=== PATIENT | male | born 1995 | race Caucasian/White ===

== ENCOUNTER 2020-06-24 19:53 | Emergency (ER) | payer OTHER ==
--- NOTE | 2020-06-24 19:56 | EDM.PDOC ---
ED HPI GENERAL MEDICAL PROBLEM - General Stated Complaint: CHEST PAIN Time Seen by Provider: 06/24/20 19:53 Source of Information: Reports: Patient History Limitations: Reports: No Limitations - History of Present Illness INITIAL COMMENTS - FREE TEXT/NARRATIVE: 24-year-old male past medical history supraventricular tachycardia, atrial fibrillation requiring cardioversion presents for chest pain. Patient notes that over the last month he has had on and off episodes of chest pain that feels worse when breathing out and is more of a discomfort than a pain. Tonight pain started and lasted for roughly 5 hours, still feeling it a bit. No associated shortness of breath. No associated lower extremity swelling or edema. He does not have a settlement processor currently. His noted that his heartbeat felt irregular prompting him to seek medical attention. chest Pain Score (Numeric/FACES): 5 - Related Data Allergies Allergy/AdvReac Type Severity Reaction Status Date / Time cefazolin [From Ancef] Allergy Rash Verified 06/24/20 20:05 doxycycline Allergy Rash Verified 06/24/20 20:05 Sulfa (Sulfonamide Allergy Rash Verified 06/24/20 20:04 Antibiotics) vancomycin Allergy Anaphylactic Verified 06/24/20 20:04 Shock Home Meds: Home Meds Colchicine 0.6 mg PO DAILY 02/17/18 [History] Dapsone 100 mg PO DAILY #30 tablet 02/17/18 [Rx] Gabapentin [Neurontin] 600 mg PO TID 02/17/18 [History] Buprenorphine/Naloxone [Buprenorphine-Naloxone 8 MG-2 MG] 1 tab PO TID 06/24/20 [History] DULoxetine [Cymbalta] 30 mg PO DAILY 06/24/20 [History] Metoprolol Succinate [Toprol Xl] 25 mg PO DAILY #30 tab.er.24h 06/24/20 [Rx] Prazosin HCl [Prazosin] 2 mg PO BEDTIME 06/24/20 [History] QUEtiapine Fumarate [Seroquel] 50 mg PO BEDTIME 06/24/20 [History] Past Medical History HEENT History: Reports: None Cardiovascular History: Reports: None Respiratory History: Reports: None Gastrointestinal History: Reports: None Genitourinary History: Reports: None Neurological History: Reports: None Psychiatric History: Reports: PTSD Endocrine/Metabolic History: Reports: None Hematologic History: Reports: None Immunologic History: Reports: None Oncologic (Cancer) History: Reports: None Dermatologic History: Reports: None - Infectious Disease History Infectious Disease History: Reports: None - Past Surgical History Head Surgeries/Procedures: Reports: None Musculoskeletal Surgical History: Reports: Shoulder Surgery Other Musculoskeletal Surgeries/Procedures:: ankle surgery, shrapnell removal from left leg Social & Family History - Family History Family Medical History: No Pertinent Family History - Caffeine Use Caffeine Use: Reports: Energy Drinks ED ROS GENERAL - Review of Systems Review Of Systems: Comprehensive ROS is negative, except as noted in HPI. ED EXAM, GENERAL - Physical Exam Exam: See Below Exam Limited By: No Limitations General Appearance: Alert, WD/WN, No Apparent Distress Throat/Mouth: Normal Voice, No Airway Compromise Head: Atraumatic, Normocephalic Neck: Normal Inspection Respiratory/Chest: No Respiratory Distress, Lungs Clear, Normal Breath Sounds, No Accessory Muscle Use Cardiovascular: Normal Peripheral Pulses, Regular Rate, Rhythm, No Edema Extremities: Normal Inspection Neurological: Alert Psychiatric: Normal Affect, Normal Mood Skin Exam: Warm, Dry, Intact, Normal Color #1 Interpretation EKG Date: 06/24/20 Time: 20:02 Rhythm: NSR Rate (Beats/Min): 82 [place]: Normal P-Wave: Present QRS: Normal ST-T: Normal QT: Normal ND/PQ Interval: 155 EKG Interpretation Comments: No acute ischemic changes, string of ventricular trigeminy Course - Vital Signs Last Recorded V/S: Last Vital Signs Temp 97.5 F 06/24/20 19:59 Pulse 83 06/24/20 20:21 Resp 16 06/24/20 19:59 BP 129/66 06/24/20 20:21 Pulse Ox 96 06/24/20 19:59 - Orders/Labs/Meds Orders: Active Orders 24 hr Category Date Time Status Cardiac Monitoring [RC] . DIRECTED Care 06/24/20 20:11 Active EKG Documentation Completion [RC] STAT Care 06/24/20 20:11 Active Pulse Oximetry [RC] ASDIRECTED Care 06/24/20 20:11 Active Chest 1V Frontal [CR] Stat Exams 06/24/20 20:12 Taken Sodium Chloride 0.9% [Saline Flush] Med 06/24/20 20:11 Active 10 ml FLUSH ASDIRECTED PRN Sodium Chloride 0.9% [Saline Flush] Med 06/24/20 20:11 Active 2.5 ml FLUSH ASDIRECTED PRN Saline Lock Insert [OM.PC] Stat Oth 06/24/20 20:11 Ordered Medication Orders Sodium Chloride (Sodium Chloride 0.9% 10 Ml Syringe) 10 ml FLUSH ASDIRECTED PRN PRN Reason: Keep Vein Open Last Admin: 06/24/20 20:18 Dose: 10 ml Documented by: KAMLESH Sodium Chloride (Sodium Chloride 0.9% 2.5 Ml Syringe) 2.5 ml FLUSH ASDIRECTED PRN PRN Reason: Keep Vein Open Last Admin: 06/24/20 20:18 Dose: 2.5 ml Documented by: KAMLESH Labs: Laboratory Tests 06/24/20 06/24/20 06/24/20 Range/Units 20:02 20:02 20:02 WBC 6.77 (4.0-11.0) K/uL RBC 4.74 (4.50-5.90) M/uL Hgb 13.7 (13.0-17.0) g/dL Hct 39.9 (38.0-50.0) % MCV 84.2 (80.0-98.0) fL MCH 28.9 (27.0-32.0) pg MCHC 34.3 (31.0-37.0) g/dL RDW Std Deviation 38.9 (28.0-62.0) fl RDW Coeff of Ashwin 13 (11.0-15.0) % Plt Count 200 (150-400) K/uL MPV 9.90 (7.40-12.00) fL Neut % (Auto) 62.9 (48.0-80.0) % Lymph % (Auto) 26.4 (16.0-40.0) % [place] % (Auto) 9.2 (0.0-15.0) % Eos % (Auto) 1.2 (0.0-7.0) % Baso % (Auto) 0.3 (0.0-1.5) % Neut # (Auto) 4.3 (1.4-5.7) K/uL Lymph # (Auto) 1.8 (0.6-2.4) K/uL [place] # (Auto) 0.6 (0.0-0.8) K/uL Eos # (Auto) 0.1 (0.0-0.7) K/uL Baso # (Auto) 0.0 (0.0-0.1) K/uL Nucleated RBC % 0.0 /100WBC Nucleated RBCs # 0 K/uL INR 1.11 APTT 23.2 (18.6-31.3) SEC D-Dimer, Quantitative (0.0-0.50) mg/L FEU Sodium 139 (136-148) mmol/L Potassium 3.2 L (3.5-5.1) mmol/L Chloride 101 (98-107) mmol/L Carbon Dioxide 29.0 (21.0-32.0) mmol/L BUN 19 H (7.0-18.0) mg/dL Creatinine 1.0 (0.8-1.3) mg/dL Est Cr Clr Drug Dosing 143.64 mL/min Estimated GFR (MDRD) > 60.0 ml/min Glucose 106 (74-106) mg/dL Calcium 8.8 (8.5-10.1) mg/dL Magnesium 2.2 (1.8-2.4) mg/dL Total Bilirubin 0.4 (0.2-1.0) mg/dL AST 31 (15-37) IU/L ALT 60 (14-63) IU/L Alkaline Phosphatase 75 (46-116) U/L Troponin I < 0.050 (0.000-0.056) ng/mL Total Protein 8.0 (6.4-8.2) g/dL Albumin 4.4 (3.4-5.0) g/dL Globulin 3.6 (2.6-4.0) g/dL Albumin/Globulin Ratio 1.2 (0.9-1.6) TSH 3rd Generation 1.27 (0.36-3.74) uIU/mL 06/24/20 Range/Units 20:02 WBC (4.0-11.0) K/uL RBC (4.50-5.90) M/uL Hgb (13.0-17.0) g/dL Hct (38.0-50.0) % MCV (80.0-98.0) fL MCH (27.0-32.0) pg MCHC (31.0-37.0) g/dL RDW Std Deviation (28.0-62.0) fl RDW Coeff of Ashwin (11.0-15.0) % Plt Count (150-400) K/uL MPV (7.40-12.00) fL Neut % (Auto) (48.0-80.0) % Lymph % (Auto) (16.0-40.0) % [place] % (Auto) (0.0-15.0) % Eos % (Auto) (0.0-7.0) % Baso % (Auto) (0.0-1.5) % Neut # (Auto) (1.4-5.7) K/uL Lymph # (Auto) (0.6-2.4) K/uL [place] # (Auto) (0.0-0.8) K/uL Eos # (Auto) (0.0-0.7) K/uL Baso # (Auto) (0.0-0.1) K/uL Nucleated RBC % /100WBC Nucleated RBCs # K/uL INR APTT (18.6-31.3) SEC D-Dimer, Quantitative 0.40 (0.0-0.50) mg/L FEU Sodium (136-148) mmol/L Potassium (3.5-5.1) mmol/L Chloride (98-107) mmol/L Carbon Dioxide (21.0-32.0) mmol/L BUN (7.0-18.0) mg/dL Creatinine (0.8-1.3) mg/dL Est Cr Clr Drug Dosing mL/min Estimated GFR (MDRD) ml/min Glucose (74-106) mg/dL Calcium (8.5-10.1) mg/dL Magnesium (1.8-2.4) mg/dL Total Bilirubin (0.2-1.0) mg/dL AST (15-37) IU/L ALT (14-63) IU/L Alkaline Phosphatase (46-116) U/L Troponin I (0.000-0.056) ng/mL Total Protein (6.4-8.2) g/dL Albumin (3.4-5.0) g/dL Globulin (2.6-4.0) g/dL Albumin/Globulin Ratio (0.9-1.6) TSH 3rd Generation (0.36-3.74) uIU/mL Meds: Medications Generic Name Dose Route Start Last Admin Trade Name Samantha PRN Reason Stop Dose Admin Sodium Chloride 10 ml 06/24/20 20:11 06/24/20 20:18 Sodium Chloride 0.9% 10 Ml Syringe FLUSH 10 ml ASDIRECTED PRN Administration Keep Vein Open Sodium Chloride 2.5 ml 06/24/20 20:11 06/24/20 20:18 Sodium Chloride 0.9% 2.5 Ml Syringe FLUSH 2.5 ml ASDIRECTED PRN Administration Keep Vein Open Discontinued Medications Generic Name Dose Route Start Last Admin Trade Name Samantha PRN Reason Stop Dose Admin Aspirin 324 mg 06/24/20 20:12 06/24/20 20:17 Aspirin 81 Mg Tab.Chew PO 06/24/20 20:13 324 mg ONETIME ONE Administration Metoprolol Tartrate 25 mg 06/24/20 20:18 06/24/20 20:21 Metoprolol Tartrate 25 Mg Tab PO 06/24/20 20:19 25 mg ONETIME ONE Administration Potassium Chloride 40 meq 06/24/20 20:51 06/24/20 21:00 Potassium Chloride 10% 20 Meq/15 Ml Soln 30 Ml Ud Cup PO 06/24/20 20:52 40 meq ONETIME ONE Administration - Re-Assessments/Exams Free Text/Narrative Re-Assessment/Exam: 06/24/20 20:21 We will get labs, chest x-ray. Will give aspirin. Will get D-dimer. Will give metoprolol 25 mg. 06/24/20 21:07 Patient's labs are grossly unremarkable aside from mild hypokalemia. Replacement ordered. Will follow up chest x-ray and anticipate discharge with cardiology follow-up. Will give 2-week course of metoprolol to trial. 06/24/20 21:13 Chest x-ray is unremarkable. Departure - Departure Time of Disposition: 21:13 Disposition: Home, Self-Care 01 Condition: Good Clinical Impression: PVC (premature ventricular contraction) Chest pain Qualifiers: Chest pain type: unspecified Qualified Code(s): R07.9 - Chest pain, unspecified - Discharge Information Prescriptions: Metoprolol Succinate [Toprol Xl] 25 mg PO DAILY #30 tab.er.24h Instructions: Nonspecific Chest Pain, Adult, Premature Ventricular Contraction Referrals: Benita Renner PA [Primary Care Provider] - Additional Instructions: Your emergency department work-up was negative for signs of damage to the heart muscle or a blood clot in the lungs. Your thyroid studies were normal. Your electrolyte panel does show mildly reduced potassium which is why we gave you a potassium supplement in the emergency department. I prescribed a medication called metoprolol that you will take once daily in the morning. This can help with the extra heartbeats. For definitive work-up you should definitely follow- up with a settlement processor. We do have one available at our hospital and information is provided below. If you develop worsening chest pain or difficulty breathing or rapid heart rate you are encouraged to come back to the emergency department. [facility] [place] [id number] The following information is given to patients seen in the emergency department who are being discharged to home. This information is to outline your options for follow-up care. We provide all patients seen in our emergency department with a follow-up referral. The need for follow-up, as well as the timing and circumstances, are variable depending upon the specifics of your emergency department visit. If you don't have a primary care physician on staff, we will provide you with a referral. We always advise you to contact your personal physician following an emergency department visit to inform them of the circumstance of the visit and for follow-up with them and/or the need for any referrals to a consulting specialist. The emergency department will also refer you to a specialist when appropriate. This referral assures that you have the opportunity for follow-up care with a specialist. All of these measure are taken in an effort to provide you with optimal care, which includes your follow-up. Under all circumstances we always encourage you to contact your private physician who remains a resource for coordinating your care. When calling for follow-up care, please make the office aware that this follow-up is from your recent emergency room visit. If for any reason you are refused follow-up, please contact the [facility] Emergency Department at and asked to speak to the emergency department charge nurse. Please follow up with your primary care physician. If you do not have a primary care physician, see below: [facility] [address] [place] [id number] [facility] [address] [place] [address] [facility] [address] [place] [address] Sepsis Event Note (ED) - Focused Exam Vital Signs: Vital Signs Temp Pulse Pulse Resp BP BP Pulse Ox 06/24/20 20:21 83 129/66 06/24/20 19:59 97.5 F 103 H 16 159/81 H 96 - My Orders Last 24 Hours: My Active Orders 06/24/20 20:11 Cardiac Monitoring [RC] . DIRECTED EKG Documentation Completion [RC] STAT Pulse Oximetry [RC] ASDIRECTED Sodium Chloride 0.9% [Saline Flush] 10 ml FLUSH ASDIRECTED PRN Sodium Chloride 0.9% [Saline Flush] 2.5 ml FLUSH ASDIRECTED PRN Saline Lock Insert [OM.PC] Stat 06/24/20 20:12 Chest 1V Frontal [CR] Stat - Assessment/Plan Last 24 Hours: My Active Orders 06/24/20 20:11 Cardiac Monitoring [RC] . DIRECTED EKG Documentation Completion [RC] STAT Pulse Oximetry [RC] ASDIRECTED Sodium Chloride 0.9% [Saline Flush] 10 ml FLUSH ASDIRECTED PRN Sodium Chloride 0.9% [Saline Flush] 2.5 ml FLUSH ASDIRECTED PRN Saline Lock Insert [OM.PC] Stat 06/24/20 20:12 Chest 1V Frontal [CR] Stat
[2020-06-24] MEDS ORDERED: Sodium Chloride 0.9% 10 ML Syringe FLUSH PRN (20:11)
[2020-06-24] MEDS ORDERED: Sodium Chloride 0.9% 2.5 ML Syringe FLUSH PRN (20:11)
[2020-06-24] MEDS ORDERED: Aspirin 81 MG Tab.Chew PO ONE (20:12)
[2020-06-24] MEDS ORDERED: Metoprolol Tartrate 25 MG Tab PO ONE (20:18)
[2020-06-24 20:40] LABS: BLOOD UREA NITROGEN,BUN 19 mg/dL (7.0-18.0); CHLORIDE,CL 101 mmol/L (98-107); GLUCOSE RANDOM 106 mg/dL (74-106); POTASSIUM,K 3.2 mmol/L (3.5-5.1); SODIUM,NA 139 mmol/L (136-148)
[2020-06-24] MEDS ORDERED: Potassium Chloride 10% 20 MEQ/15 ML Soln 30 ML UD Cup PO ONE (20:51)
--- NOTE | 2020-06-24 21:45 | CR ---
Indication: Chest pain Technique: Chest 1 view Comparison: None Findings/Impression: Cardiovascular and mediastinum: Heart size and vasculature are normal in caliber and appearance. Mediastinum is within normal limits. Lungs and pleural space: Lungs are clear. No sign of infiltrate or mass. No sign of pleural effusion. No pneumothorax. Bones and soft tissues: No significant findings. Dictated by Stefany Robin MD @ Jun 24 2020 9:43PM Signed by Dr. Stefany Robin @ Jun 24 2020 9:44PM
== END 2020-06-24 21:33 | disposition home or self-care (01) ==
LOC: MW.ED 19:53
DX: I49.3 Ventricular premature depolarization (principal); Z88.1 Allergy status to other antibiotic agents; Z88.2 Allergy status to sulfonamides; Z79.899 Other long term (current) drug therapy
CPT/HCPCS: 36415; 71045; 80053; 83735; 84443; 84484; 85025; 85379; 85610; 85730; 93005; 99285; A9270; 93010; 99283

== ENCOUNTER 2021-06-20 18:13 | Emergency (ER) | payer OTHER ==
[2021-06-20] MEDS ORDERED: Diphtheria,Pertussis(Acell),Tetanus Vaccine 0.5 ML Syringe IM ONE (18:50)
== END 2021-06-20 19:40 | disposition home or self-care (01) ==
LOC: MW.ED 18:13
DX: S61.411A Laceration without foreign body of right hand, initial encounter (principal); I48.91 Unspecified atrial fibrillation; Z88.1 Allergy status to other antibiotic agents; Z88.2 Allergy status to sulfonamides; Z23 Encounter for immunization; W26.8XXA Contact with other sharp object(s), not elsewhere classified, initial encounter
CPT/HCPCS: 12002; 90471; 90715; 99282; 99282-25

== ENCOUNTER 2022-01-22 18:06 | Emergency (ER) | payer OTHER | END 2022-01-22 19:07 | disposition home or self-care (01) | LOC: MW.ED 18:06 | DX: Z02.89 Encounter for other administrative examinations (principal); Z88.1 Allergy status to other antibiotic agents; Z88.2 Allergy status to sulfonamides; Z88.8 Allergy status to other drugs, medicaments and biological substances | CPT/HCPCS: 99282 ==

== ENCOUNTER 2023-06-04 10:35 | Emergency (ER) | payer OTHER | END 2023-06-04 13:23 | disposition home or self-care (01) | LOC: MW.ED 10:35 | DX: Z76.0 Encounter for issue of repeat prescription; K21.9 Gastro-esophageal reflux disease without esophagitis; Z79.899 Other long term (current) drug therapy; Z88.1 Allergy status to other antibiotic agents; Z88.2 Allergy status to sulfonamides | CPT/HCPCS: 99283 ==

== ENCOUNTER 2023-06-21 21:08 | Day surgery (SDC) | payer OTHER ==
[2023-06-21] MEDS: Ketorolac 30 MG/ML SDV IM ONE (22:34)
[2023-06-22] MEDS ORDERED: Naloxone 0.4 MG/ML SDV IVPUSH PRN (00:29)
[2023-06-22] MEDS: Ondansetron 4 MG/2 ML SDV IVPUSH ONE (01:28)
[2023-06-22] MEDS: fentaNYL 100 MCG/2 ML SDV IVPUSH ONE (01:28)
[2023-06-22] MEDS: Propofol 200 MG/20 ML SDV IVPUSH ONE ×4 (02:05→02:48)
[2023-06-22] MEDS: Sodium Chloride 0.9% 1,000 ML IV SCH (02:28)
[2023-06-22] MEDS: Sodium Chloride 0.9% 10 ML Syringe FLUSH PRN (02:28)
[2023-06-22] MEDS: Sodium Chloride 0.9% 2.5 ML Syringe FLUSH PRN (02:29)
[2023-06-22] MEDS: Sodium Chloride 0.9% 20 ML SDV IV PRN (02:29)
[2023-06-22] MEDS ORDERED: Propofol 200 MG/20 ML SDV ONE (02:41)
== END 2023-06-22 08:00 ==
LOC: MW.ED 21:08 → MW.SDS 06-22 02:17 → MW.MS 06-22 03:30 → MW.SDS 06-22 08:00
PROVIDERS: ATTEND Orthopaedic Surgery
DX: S43.015A Anterior dislocation of left humerus, initial encounter (principal); Z88.2 Allergy status to sulfonamides; Z88.1 Allergy status to other antibiotic agents; X58.XXXA Exposure to other specified factors, initial encounter
CPT/HCPCS: 23655; 73020; 73030; 76000; J1885; J2405; J2704; J3010; J3490; J7030; 01620; 23650; 99152; 99203; 99284

== ENCOUNTER 2023-06-30 13:40 | Emergency (ER) | payer OTHER | END 2023-06-30 17:21 | LOC: MW.ED 13:40 | DX: S43.112D Subluxation of left acromioclavicular joint, subsequent encounter (principal); K21.9 Gastro-esophageal reflux disease without esophagitis; Z86.16 Personal history of COVID-19; Z79.899 Other long term (current) drug therapy; X58.XXXD Exposure to other specified factors, subsequent encounter | CPT/HCPCS: 23650; 73030-26-LT; 73030-LT; 99283; 99284 ==

== ENCOUNTER 2023-07-22 11:55 | Emergency (ER) | payer MEDICAID, OTHER ==
[2023-07-22] MEDS: Sodium Chloride 0.9% 10 ML Syringe FLUSH PRN (12:33)
[2023-07-22] MEDS: Sodium Chloride 0.9% 2.5 ML Syringe FLUSH PRN (12:33)
[2023-07-22] MEDS: Sodium Chloride 0.9% 1,000 ML IV STA (12:33)
[2023-07-22 12:38] LABS: BASOPHILS ABSOLUTE AUTO 0.03 K/uL (0.00-0.20); BASOPHILS PERCENT AUTO 0.6 % (0.0-1.0); EOSINOPHILS ABSOLUTE AUTO 0.06 K/uL (0.00-0.45); EOSINOPHILS PERCENT AUTO 1.3 % (0.0-6.0); HEMATOCRIT 41.6 % (42.0-52.0); HEMOGLOBIN 13.9 g/dL (14.0-18.0); IMMATURE GRAN ABSOLUTE AUTO 0.02 K/uL (0.00-0.05); IMMATURE GRAN PERCENT AUTO 0.4 % (0.0-0.4); LYMPHOCYTES ABSOLUTE AUTO 1.23 K/uL (1.00-4.80); LYMPHOCYTES PERCENT AUTO 25.9 % (24.0-44.0); MEAN CORPUSCULAR HEMOGLOBIN 25.4 pg (28.0-32.0); MEAN CORPUSCULAR HGB CONC 33.4 g/dL (32.0-36.0); MEAN CORPUSCULAR VOLUME 75.9 fL (83.0-99.0); MEAN PLATELET VOLUME 8.9 fL (9.4-12.4); MONOCYTES ABSOLUTE AUTO 0.29 K/uL (0.00-0.80); MONOCYTES PERCENT AUTO 6.1 % (0.0-8.0); NEUTROPHILS ABSOLUTE AUTO 3.11 K/uL (1.80-7.70); NEUTROPHILS PERCENT AUTO 65.7 % (41.0-71.0); PLATELET COUNT,PLT 288 K/uL (150-400); RED BLOOD CELL COUNT 5.48 M/uL (4.52-5.90); WHITE BLOOD CELL COUNT,WBC 4.74 K/uL (3.9-11.3)
[2023-07-22 13:00] LABS: INR 1.15 (0.86-1.11); PTT,PARTIAL THROMBOPLSTIN TIME 35.7 SEC (23.9-30.7)
[2023-07-22 13:06] LABS: BILIRUBIN TOTAL 0.6 mg/dL (0.2-1.0); CALCIUM 9.2 mg/dL (8.5-10.1); CARBON DIOXIDE,CO2 27.1 mmol/L (21.0-32.0); CREATININE 1.2 mg/dL (0.8-1.3); EST CRCL DRUG DOSING (CG) 117.42 mL/min; MAGNESIUM 2.3 mg/dL (1.8-2.4); PHOSPHORUS 3.8 mg/dL (2.6-4.7); POTASSIUM,K 3.7 mmol/L (3.5-5.1)
== END 2023-07-22 15:15 ==
LOC: MW.ED 11:55
DX: F50.89 Other specified eating disorder (principal); I48.91 Unspecified atrial fibrillation; Z68.24 Body mass index [BMI] 24.0-24.9, adult; Z75.8 Other problems related to medical facilities and other health care; Z88.8 Allergy status to other drugs, medicaments and biological substances; Z88.1 Allergy status to other antibiotic agents; Z88.2 Allergy status to sulfonamides
CPT/HCPCS: 36415; 80053; 83690; 83735; 84100; 85025; 85610; 85730; 93005; 96360; 99285; J3490; J7030

== ENCOUNTER 2023-07-22 20:01 | Emergency (ER) | payer OTHER, MEDICAID | END 2023-07-22 22:57 | LOC: MW.ED 20:01 | DX: Z01.31 Encounter for examination of blood pressure with abnormal findings (principal); Z71.1 Person with feared health complaint in whom no diagnosis is made; Z75.8 Other problems related to medical facilities and other health care; Z88.1 Allergy status to other antibiotic agents; Z88.2 Allergy status to sulfonamides; Z88.8 Allergy status to other drugs, medicaments and biological substances; Z79.899 Other long term (current) drug therapy; Z86.16 Personal history of COVID-19 | CPT/HCPCS: 99281; 99283 ==

== ENCOUNTER 2023-08-27 00:02 | Emergency (ER) | payer MEDICAID, OTHER ==
[2023-08-27] MEDS: Sodium Chloride 0.9% 2.5 ML Syringe FLUSH PRN (01:12)
[2023-08-27] MEDS: Sodium Chloride 0.9% 1,000 ML IV ONE (01:12)
[2023-08-27] MEDS: Sodium Chloride 0.9% 10 ML Syringe FLUSH PRN (01:12)
[2023-08-27] MEDS: Ondansetron 4 MG/2 ML SDV IVPUSH ONE (01:12)
[2023-08-27 01:42] LABS: BASOPHILS ABSOLUTE AUTO 0.03 K/uL (0.00-0.20); BASOPHILS PERCENT AUTO 0.6 % (0.0-1.0); EOSINOPHILS ABSOLUTE AUTO 0.09 K/uL (0.00-0.45); EOSINOPHILS PERCENT AUTO 1.7 % (0.0-6.0); HEMATOCRIT 43.6 % (42.0-52.0); HEMOGLOBIN 15.1 g/dL (14.0-18.0); IMMATURE GRAN ABSOLUTE AUTO 0.02 K/uL (0.00-0.05); IMMATURE GRAN PERCENT AUTO 0.4 % (0.0-0.4); LYMPHOCYTES ABSOLUTE AUTO 2.02 K/uL (1.00-4.80); MEAN CORPUSCULAR HEMOGLOBIN 26.3 pg (28.0-32.0); MEAN CORPUSCULAR HGB CONC 34.6 g/dL (32.0-36.0); MEAN PLATELET VOLUME 8.8 fL (9.4-12.4); MONOCYTES ABSOLUTE AUTO 0.48 K/uL (0.00-0.80); NEUTROPHILS ABSOLUTE AUTO 2.67 K/uL (1.80-7.70); NEUTROPHILS PERCENT AUTO 50.3 % (41.0-71.0); PLATELET COUNT,PLT 252 K/uL (150-400); RED BLOOD CELL COUNT 5.74 M/uL (4.52-5.90); WHITE BLOOD CELL COUNT,WBC 5.31 K/uL (3.9-11.3)
[2023-08-27 02:38] LABS: A/G RATIO 1.1 (0.9-1.6); ALBUMIN 4.5 g/dL (3.4-5.0); BILIRUBIN TOTAL 1.2 mg/dL (0.2-1.0); CALCIUM 9.3 mg/dL (8.5-10.1); CARBON DIOXIDE,CO2 18.1 mmol/L (21.0-32.0); EST CRCL DRUG DOSING (CG) 140.91 mL/min; MAGNESIUM 2.1 mg/dL (1.8-2.4); POTASSIUM,K 3.5 mmol/L (3.5-5.1); PROTEIN TOTAL,TP 8.6 g/dL (6.4-8.2)
[2023-08-27] MEDS: Lactated Ringers 1,000 ML IV ONE (03:10)
== END 2023-08-27 04:14 ==
LOC: MW.ED 00:02
DX: I95.9 Hypotension, unspecified (principal); E86.0 Dehydration; R63.8 Other symptoms and signs concerning food and fluid intake; K21.9 Gastro-esophageal reflux disease without esophagitis; Z88.1 Allergy status to other antibiotic agents; Z88.2 Allergy status to sulfonamides; Z88.8 Allergy status to other drugs, medicaments and biological substances; Z79.899 Other long term (current) drug therapy
CPT/HCPCS: 36415; 80053; 83690; 83735; 84484; 85025; 93005; 96361; 96374; 99285; J2405; J3490; J7030; J7120; 93010; 99284

== ENCOUNTER 2023-08-28 11:47 | Emergency (ER) | payer MEDICAID, OTHER | END 2023-08-28 12:57 | LOC: MW.ED 11:47 | DX: K21.9 Gastro-esophageal reflux disease without esophagitis; Z88.1 Allergy status to other antibiotic agents; Z88.2 Allergy status to sulfonamides; Z88.8 Allergy status to other drugs, medicaments and biological substances; Z79.899 Other long term (current) drug therapy; Z75.8 Other problems related to medical facilities and other health care | CPT/HCPCS: 99282; 99283 ==